=== PATIENT | male | born 1980 | race African-American/Black ===

== ENCOUNTER 2018-05-13 20:53 | Emergency (ER) | payer BC ==
[~2018-05-13] VITALS: Ht 200.7 cm; Wt 86.2 kg
[2018-05-13 22:04] LABS: URINE BILIRUBIN NEGATIVE (Negative); URINE BLOOD NEGATIVE (Negative); URINE CLARITY CLEAR; URINE COLOR YELLOW; URINE GLUCOSE-RANDOM* NEGATIVE (Negative); URINE KETONES NEGATIVE (Negative); URINE LEUKOCYTES-REFLEX NEGATIVE (Negative); URINE NITRITE-REFLEX NEGATIVE (Negative); URINE PROTEIN (DIPSTICK) NEGATIVE (Negative); URINE UROBILINOGEN 0.2 E.U./dl (0.2-1.0)
[2018-05-13 23:50] VITALS: BP 122/70
== END 2018-05-13 23:26 | disposition home or self-care (01) ==
LOC: ER 20:53
PROVIDERS: Emergency Medicine
DX: N34.2 Other urethritis (principal)